=== PATIENT | female | born 1985 | race Caucasian/White ===

== ENCOUNTER 2016-12-18 13:38 | Inpatient (IN) | payer MEDICAID, OTHER ==
[2016-12-18] MEDS ORDERED: LACTATED RINGERS 1,000 ML IV PRN (14:08)
[2016-12-18] MEDS ORDERED: FENTANYL 100 MCG/2 ML VIAL IV PRN (14:08)
[2016-12-18] MEDS ORDERED: OXYTOCIN IN LR 500 ML IV ONE (14:08)
[2016-12-18] MEDS ORDERED: LIDOCAINE 1% (PRES FREE) 30 ML VIAL ONE (14:14)
[2016-12-18] MEDS ORDERED: OXYTOCIN 10 UNITS/ML VIAL ONE (14:14)
[2016-12-18] MEDS ORDERED: MINERAL OIL 25 ML BOT ONE (14:14)
[2016-12-18] MEDS ORDERED: LIDOCAINE Viscous 2% 15 ML UDCUP ONE (14:14)
[2016-12-18] MEDS ORDERED: PUMP TUBING ONE (14:15)
[2016-12-18] MEDS ORDERED: IV START KIT ONE (14:15)
--- NOTE | 2016-12-18 15:31 | PDOC36 ---
Provider Note Subject: cc: Admission H&P HPI: 31 y.o. year old AMEE 01/01/2017, by Last Menstrual Period at 38w0d. Presents in active labor. REVIEW OF SYSTEMS GENERAL: No fever or headache EYES: No double or blurry vision. CARDIOVASCULAR: No chest pain. RESPIRATORY: No severe shortness of breath or cough. GASTROINTESTINAL: No nausea or vomiting or right upper quadrant pain. PSYCHIATRIC: No anxiety or depression. PROBLEMS Patient Active Problem List Diagnosis Date Noted Supervision of normal 05/30/2016 OB HISTORY #: 1, Date: 06/02/00, Sex: Male, Weight: 3.033 kg (6 lb 11 oz), GA: 40w0d, Delivery: Vaginal, Spontaneous Delivery, Apgar1: None, Apgar5: None, Living: Yes , Comments: None #: 2, Date: 05/12/03, Sex: Male, Weight: 2.58 kg (5 lb 11 oz), GA: 37w0d, Delivery: Vaginal, Spontaneous Delivery, Apgar1: None, Apgar5: None, Living: Yes , Comments: US showed small kidney and potential down syndrome per Pt, but baby born without complications or conditions. #: 3, Date: 12/28/07, Sex: None, Weight: None, GA: 1w0d, Delivery: Spontaneous , Apgar1: None, Apgar5: None, Living: None, Comments: None #: 4, Date: 04/07/09, Sex: Male, Weight: 3.033 kg (6 lb 11 oz), GA: 40w0d, Delivery: Vaginal, Spontaneous Delivery, Apgar1: None, Apgar5: None, Living: Yes , Comments: Threatened AB at 12w GA, vaginal bleeding, sx resolved on their own. #: 5, Current Dating: Based On AMEE GA Dif Comments GA Cyc Lut BC Entered By Date Last Menstrual Period on 03/27/16 (Exact Date) 01/01/17 Working Danielle Jack RN 05/22/16 Ultrasound on 08/18/16 01/02/17 -1d Consistent with LMP. Normal survey. Anterior grade 1 placenta, no previa. Normal fluid. 20w3d Lore Magaña MD 08/18/16 PSH No past surgical history SOC HX reports that she has never smoked. She has never used smokeless tobacco. She reports that she does not drink alcohol or use illicit drugs. ALL No Known Allergies MEDICATIONS Current outpatient prescriptions: Vit-Fe Fumarate-FA ( PLUS) 27-1 MG tablet, Take 1 tablet by mouth daily., Disp: 100 each, Rfl: 3 PHYSICAL EXAMINATION VITAL SIGNS: 130/72 P 67 T 98.3 Estimated body mass index is 32.97 kg/(m^2) as calculated from the following: Height as of 12/17/16: 1.435 m (4' 8.5"). Weight as of 12/17/16: 67.9 kg (149 lb 11.1 oz). Total weight gain is 13.468 kg (29 lb 11.1 oz) FHT: 130's baseline, mod christina, + accels, no decels [place]: q2-3 SVE: 6 cm GENERAL: No distress CARDIOVASCULAR: Regular rate and rhythm, no murmur RESPIRATORY: Clear to auscultation bilaterally, respiratory effort is nonlabored at rest. GASTROINTESTINAL: Gravid no fundal tenderness LABS & STUDIES B+ Antibody- Rubella Immune Hep B- HIV- GC/Chlamydia- Trep- Hgb 11.6 GBS neg ASSESSMENT 31 y.o. year old AMEE 01/01/2017, by Last Menstrual Period at 38w0d presents in active labor. PLAN Labor- expectant management. Anticipate . FWB: category I GBS: neg RH: +
[2016-12-18] MEDS ORDERED: LIDOCAINE 1% (PRES FREE) 30 ML VIAL SUB-Q ONE (15:39)
[2016-12-18] MEDS ORDERED: FLU VACC 2016-17 (36MO-64Y)/PF 60 MCG/0.5 ML SYRINGE IM V ONE (16:44)
--- NOTE | 2016-12-18 17:07 | PCMDEL ---
Delivery Note - Labor 1st stage (hr/min):: 3hours 37 min 2nd stage (hr/min):: 41 min 3rd stage (hr/min):: 3 min Total (hr/min):: 4 hours Pushed (hr/min):: 41 min - Delivery Delivery (Date): 12/18/16 Delivery (Time): 16:21 Infant Gender: Male Presentation: Cephalic Position: OA Umbilical Cord: 3 Vessel Delayed Cord Clamping:: 2-3 min 1 Minute Total: 9 5 Minute Total: 9 Placenta:: intact EBL:: 300 Perineum:: 1st deg midline perineal tear repaird in normal fashion with 3-0 vicryl Comments:: Presented in active labor. FWB category I thorughout. Delivered via without complications. Nuchal and body cord x 1 reduced after delivery. Vigorous infant. Delayed cord clamping x 2 min. Active third stage with pit and fundal massage. 1st deg repair in running fashion.
[2016-12-18] MEDS ORDERED: LANOLIN 50 APPLIC/7G TUBE TP PRN (17:20)
[2016-12-18] MEDS ORDERED: BENZOCAINE/MENTHOL 60 APPLIC/BOT TP PRN (17:20)
[2016-12-18] MEDS ORDERED: HYDROCODONE/ACETAMINOPHEN 5/325MG TABLET PO PRN (17:20)
[2016-12-18] MEDS ORDERED: MAGNESIUM HYDROXIDE 30 ML UDCUP PO PRN (17:20)
[2016-12-18] MEDS ORDERED: DOCUSATE SODIUM 100 MG CAPSULE PO PRN (17:20)
[2016-12-18] MEDS ORDERED: SENNOSIDES 8.6 MG TABLET PO PRN (17:20)
[2016-12-18] MEDS: IBUPROFEN 800 MG TABLET PO PRN (18:00)
[2016-12-18 20:54] VITALS: BMI 32.0
[2016-12-19] MEDS: IBUPROFEN 800 MG TABLET PO PRN ×3 (01:52→14:15)
[2016-12-19 06:48] LABS: HEMATOCRIT 31.8 % (37.0-47.0); HEMOGLOBIN 10.7 gm/l (12.0-16.0)
--- NOTE | 2016-12-19 13:07 | PDOC44 ---
- Subjective Day: 1 Reports Pain Tolerable - Objective Temp Pulse Resp BP Pulse Ox 97.9 F 63 16 97/55 12/19/16 08:14 12/19/16 08:14 12/19/16 08:14 12/19/16 08:14 Lab Results 12/19/16 06:20 Hgb 10.7 L Hct 31.8 L Current Medications Generic Name Dose Route Start Last Admin Trade Name Freq PRN Reason Stop Dose Admin Acetaminophen/Hydrocodone Bitart 1 - 2 tab 12/18/16 17:20 [place] 5/325 PO Q4H PRN Pain (Moderate) Benzocaine/Menthol 1 applic 12/18/16 17:20 Dermoplast TP PRN PRN Patient Comfort Docusate Sodium 100 mg 12/18/16 17:20 Colace PO DAILY PRN Comfort Emollient Ointment 1 applic 12/18/16 17:20 12/19/16 08:28 [id number] TP 1 tube PRN PRN Administration sore nipples Ibuprofen 800 mg 12/18/16 17:20 12/19/16 08:28 Motrin PO 800 mg Q6H PRN Administration Pain (Mild) Magnesium Hydroxide 30 ml 12/18/16 17:20 Milk Of Magnesia PO BEDTIME PRN Constipation Senna 17.2 mg 12/18/16 17:20 Senokot PO BEDTIME PRN Comfort Sodium Chloride 10 ml 12/18/16 17:20 12/18/16 17:28 Normal Saline 10ml Flush IV 10 ml PRN PRN Administration IV Flush - Physical Exam General: Afebrile Psych/Mental Status: Bonding Well Neurological: Oriented x 4 Lungs: Clear to Auscultation Bilaterally Cardiovascular: Regular Rate and Rhythm Fundus: Firm, At Umbilicus Lochia: Light - Problems:Assessment/Plan (1) Vaginal delivery Status: AcuteAssessment/Plan: Doing well Normal exam Encourage Routine care Disposition: Stable
[2016-12-20] MEDS: IBUPROFEN 800 MG TABLET PO PRN (07:46)
[2016-12-20 07:51] VITALS: BP 107/67
--- NOTE | 2016-12-20 09:11 | PDOC39B ---
Hospital Course: ADMIT DATE: 12/18/16 DISCHARGE DATE: 12/20/16 ADMISSION DIAGNOSES: IUP at term PROCEDURES: HISTORY OF PRESENT ILLNESS: 31 year old G5 T3 L3 at 38 weeks 0 days presenting with [facility] HOSPITAL COURSE: The patient was admitted in active labor. Progressed to complete and had uncomplicated . PP course was unremarkable. By day of discharge the patient is ambulating, eating, voiding, and passing flatus without difficulty. Pain is controlled and lochia is appropriate. She is . - Physical Exam Vital Signs: Temp Pulse Resp BP Pulse Ox 97.9 F 69 18 107/67 12/20/16 07:49 12/20/16 07:49 12/20/16 07:49 12/20/16 07:49 General: Afebrile, No Acute Distress Psych/Mental Status: Mood/Affect Appropriate, Judgment/Insight Intact, Bonding Well Neurological: Grossly Intact, Alert HEENT: Atraumatic, Mucous membr. moist/pink Lungs: Clear to Auscultation Bilaterally Cardiovascular: Regular Rate and Rhythm Breast: Soft Fundus: Firm, Midline, Below Umbilicus Extremities: Full ROM, No Edema Skin: Normal Color, Warm, Dry, Intact, No Rash - Discharge Diagnosis (1) Vaginal delivery Status: AcuteAssessment/Plan: Doing well PPD#2 Normal exam Support DC home PP precautions given Pelvic rest - Discharge Plan Condition: Good Disposition: Home Prescriptions: Docusate Sodium [COLACE 100 MG CAPSULE (F)] 100 mg PO DAILY PRN #60 PRN Reason: Comfort Benzocaine/Menthol [DERMOPLAST SPRAY (F)] 1 applic TP PRN PRN #1 PRN Reason: Patient Comfort Ibuprofen [IBUPROFEN 800 MG TABLET (F)] 800 mg PO Q6H PRN #60 PRN Reason: Pain (Mild) Lanolin [LANOLIN 7 G TUBE (F)] 1 applic TP PRN PRN #1 PRN Reason: Sore Nipples Vit/Iron Fumarate/FA [ Tablet] 1 each PO DAILY #100 tablet Follow-Up: Aniya Benjamin FNP [Referring] - In 2-3 days (clinic to call to sched)
== END 2016-12-20 11:25 | disposition home or self-care (01) | DRG 775 ==
LOC: FBCOUT 13:38 → FBC 13:39 → FBCOUT 14:04
PROVIDERS: ADMIT Family Medicine; ATTEND Family Medicine
PROC: 10E0XZZ Delivery of Products of Conception, External Approach (ICD-10-PCS; principal; 2016-12-18)
PROC: 0HQ9XZZ Repair Perineum Skin, External Approach (ICD-10-PCS; 2016-12-18)
DX: O70.0 First degree perineal laceration during delivery (principal); O69.81X0 Labor and delivery complicated by cord around neck, without compression, not applicable or unspecified; O09.43 Supervision of pregnancy with grand multiparity, third trimester; Z3A.38 38 weeks gestation of pregnancy; Z37.0 Single live birth